=== PATIENT | female | born 2005 | race Caucasian/White ===

== ENCOUNTER 2025-03-15 19:51 | Emergency (ER) | payer BC, SELFPAY ==
[2025-03-15 20:25] VITALS: BP 155/81; PULSE 80; RESP 20; TEMP 36.3; O2SAT 100; BMI 33.1
--- NOTE | 2025-03-16 00:36 | ED.GENADULT ---
HPI - General Adult General Chief complaint: Eye Problems Stated complaint: foreign object in left eye Time Seen by Provider: 03/16/25 00:13 Source: patient, RN notes reviewed and old records reviewed Mode of arrival: ambulatory Limitations: no limitations History of Present Illness ED Provider: Purvi PACK narrative: 19-year-old female presents for evaluation of a foreign body in her left eye. She reports that she would not have any. She works with metal and concrete and reports that she was not wearing eye protection yesterday or today over her eyes. She does not remember actually getting anything in her eye but felt discomfort when she was pumping gas a few hours prior to arrival. She looks in the mirror and saw a small black speck on the nasal side of her left eye. Abdominal she denies any visual changes. Her last tetanus was 8 years ago She reports that she has an eye doctor in the outpatient setting that she sees for prescription glasses but never wears contacts Related Data Previous Rx's ?Medication ?Instructions ?Recorded tobramycin 0.3 % eye drops 2 drp ophthalmic-Left Q4H 5 days 03/16/25 #5 mL Allergies Allergy/AdvReac Type Severity Reaction Status Date / Time No Known Allergies Allergy Verified 03/15/25 20:27 Review of Systems Eyes: Eyes: Denies blurry vision, Reports irritation, Denies loss of vision, Denies other visual disturbances, Reports requires corrective lenses, Denies seeing flashes, Denies photophobia, Denies spots in vision and Denies tunnel vision ENT: Denies vertigo and Denies dizziness Cardiovascular: Cardiovascular: Denies chest pain Neurologic: Denies vertigo, Denies dizziness and Denies loss of vision PMFSH Social History Social History Advance Directives: No Advance Directives Information Provided: Yes Physical Exam ED Vital Signs: Vital Signs - 24 hr 03/15/25 20:25 Temperature 97.4 F Pulse Rate 80 Respiratory Rate 20 Blood Pressure 155/81 H Pulse Oximetry 100 Oxygen Delivery Method Room Air BMI result Body Mass Index 33.1 Const General: healthy appearing, comfortable, no acute distress, alert and awake Nutritional Appearance: well nourished Orientation/consciousness: patient oriented x3 HENMT Head: Yes normocephalic and Yes atraumatic Eyes Other: There is a pinpoint foreign body to the left eye in the nasal side of the iris. This was easily removed with a cotton swab. A tiny rust ring appeared to remain Visual Villarreal: normal visual villarreal by confrontation Alignment and Position: alignment normal Periorbital: periorbital findings normal Eyelids: Yes eyelids normal Sclerae: sclerae normal Corneas: corneas normal Pupils: Equal, round and reactive pupils present EOM: EOMs intact bilaterally Direct Ophthalmoscopy: No photophobia Neck Neck: Yes full ROM Resp Effort & Inspection: normal respiratory effort, able to speak in complete sentences and not labored Skin General skin exam: elasticity normal Neuro General: patient oriented x3 Cranial nerves: Yes Equal, round and reactive pupils present and Yes Bilaterally intact EOM present Cognition (Neuro): normal cognition Extrem Other: Moving all extremities well without any obvious deformities Medical Decision Making Medical Decision Making MDM Narrative: 19-year-old female presents for evaluation of a foreign body in the left eye. She reports mild discomfort, no visual changes. She had Toradol, a tiny foreign body that appeared to be metallic in nature. She does work with metal. For this reason we will update her tetanus. I was easily able to remove the metallic foreign body with a cotton swab on 1 try. A tiny rust ring appeared to remain. We do not have a bur. 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 I feel that safety discharge the patient with antibiotics outpatient ophthalmology follow up and a referral to our in-house Ophthalmology in case she is unable to see her outpatient provider. I discussed the importance of using I wear protection in the future Differential Diagnosis Differential Diagnoses: The differential diagnosis associated with the presentation includes Conjunctival foreign body Corneal abrasion Conjunctivitis Iritis Discharge Plan Discharge Clinical Impression: Acute foreign body of left conjunctiva Patient Disposition: Home, Self-Care Instructions: Eye Foreign Body (ED) Additional Instructions: You had a metallic foreign body in the left eye. This was easily removed with a cotton swab. However there is a tiny remnants known as a rust ring This is usually removed by a tool called a bur In his important to follow up with Ophthalmology. You may call your eye doctor vikash and if they can not see you tomorrow afternoon, you may call Dr. Palomares at the number provided In the meantime your tetanus was updated today in his good for 5 years. Take the antibiotic drops as prescribed to prevent conjunctivitis or pinkeye In his very important to wear eye protection when you were working with metal fragments Prescriptions: New tobramycin 0.3 % drops 2 drp ophthalmic-Left Q4H 5 Days Qty: 5 0RF Referrals: Joey Palomares [Physician, Ophthalmology] Referral Note: left eye rust ring Print Language: Upper Sorbian
--- OUTSIDE RECORDS SUMMARY | 2025-03-16 00:45 | XMS_ITS | Encounter Summary ---
Author Organization [facility] Address [address] [place] [id number] Phone Care Team Providers Care Monotype Operator Name Role Phone Rachel Mcknight MD Primary Care Provider [phone] Encounter Details Date Type Department Care Team (Late st Contact Info) Description 03/21/2013 Documentation [facility] [place] [address] [place] [address] Family Medicine, Physician [address] [place], [place] [phone] Social History Tobacco Use Types Packs/Day Years Used Date Smoking Tobacco: Never Assessed Comments Unknown Sex and Gender Information Value Date Recorded Sex Assigned at Female 11/16/2019 5:24 PM EDT Legal Sex Female 4:52 PM EDT Gender Identity Female 11/16/2019 5:24 PM EDT Sexual Orientation Straight 11/16/2019 5: 24 PM EDT documented as of this encounter Plan of Treatment Not on file documented as of this encounter Visit Diagnoses Not on filedocumented in this encounter Care Teams Monotype Operator Relationship Specialty Start Date End Date Rachel Mcknight MD [address] [place] [address] PCP - General Pediatrics 10/18/17 09/19/23 documented as of this encounter
--- OUTSIDE RECORDS SUMMARY | 2025-03-16 00:45 | XMS_ITS | Encounter Summary ---
Author Organization [facility] Address [address] [place] [phone] Phone Care Team Providers Care Supervisor Firearms Name Role Phone Rachel Mcknight MD Primary Care Provider [phone] Encounter Details Date Type Department Care Team (Late st Contact Info) Description 11/21/2010 Documentation [facility] [place] Family Medicine [address] [place] [address] Family Medicine, Physician [address] [place], [place] [phone] Social History Tobacco Use Types Packs/Day Years [...] on filedocumented in this encounter Care Teams Supervisor Firearms Relationship Specialty Start Date End Date Rachel Mcknight MD [address] [place] [address] PCP - General Pediatrics 10/18/17 09/19/23 documented as of this encounter
--- OUTSIDE RECORDS SUMMARY | 2025-03-16 00:45 | XMS_ITS | Encounter Summary ---
Author Organization [facility] Address [address] [place] [address] Phone Care Team Providers Care Tilting Saw Operator Name Role Phone Rachel Mcknight MD Primary Care Provider [phone] Encounter Details Date Type Department Care Team (Late st Contact Info) Description 11/21/2010 [place] [facility] [place] [address] [place] [address] Family Medicine, Physician [address] [place], [place] [phone] Social History Tobacco Use Types Packs/Day Years [...] on filedocumented in this encounter Care Teams Tilting Saw Operator Relationship Specialty Start Date End Date Rachel Mcknight MD [address] [place] [address] PCP - General Pediatrics 10/18/17 09/19/23 documented as of this encounter
--- OUTSIDE RECORDS SUMMARY | 2025-03-16 00:45 | XMS_ITS | Encounter Summary ---
Author Organization [facility] Address [address] [place] [address] Phone Care Team Providers Care Signal Manager Name Role Phone Rachel Mcknight MD Primary Care Provider [phone] Encounter Details Date Type Department Care Team (Late st Contact Info) Description 11/21/2010 Documentation [facility] [place] Family Medicine [address] [place] [address] Family Medicine, Physician [address] [place], [place] [phone] Social History Tobacco Use Types Packs/Day Years [...] on filedocumented in this encounter Care Teams Signal Manager Relationship Specialty Start Date End Date Rachel Mcknight MD [address] [place] [address] PCP - General Pediatrics 10/18/17 09/19/23 documented as of this encounter
--- OUTSIDE RECORDS SUMMARY | 2025-03-16 00:46 | XMS_ITS | Encounter Summary ---
Author Organization [facility] Address [address] [place] [address] Phone Care Team Providers Care Film Laboratory Technician Name Role Phone Rachel Mcknight MD Primary Care Provider [phone] Encounter Details Date Type Department Care Team (Late st Contact Info) Description 09/16/2016 Documentation [facility] [place] Family Medicine [address] [place] [address] Family Medicine, Physician [address] [place], [place] [phone] Social History Tobacco Use Types Packs/Day Years [...] on filedocumented in this encounter Care Teams Film Laboratory Technician Relationship Specialty Start Date End Date Rachel Mcknight MD [address] [place] [address] PCP - General Pediatrics 10/18/17 09/19/23 documented as of this encounter
--- OUTSIDE RECORDS SUMMARY | 2025-03-16 00:46 | XMS_ITS | Encounter Summary ---
Author Organization [facility] Address [address] [place] [address] Phone Care Team Providers Care Harness Repairer Name Role Phone Rachel Mcknight MD Primary Care Provider [phone] Encounter Details Date Type Department Care Team (Late st Contact Info) Description 10/10/2013 Documentation [facility] [place] Family Medicine [address] [place] [address] Family Medicine, Physician [address] [place], [place] [phone] Social History Tobacco Use Types Packs/Day Years [...] on filedocumented in this encounter Care Teams Harness Repairer Relationship Specialty Start Date End Date Rachel Mcknight MD [address] [place] [address] PCP - General Pediatrics 10/18/17 09/19/23 documented as of this encounter
--- OUTSIDE RECORDS SUMMARY | 2025-03-16 00:46 | XMS_ITS | Encounter Summary ---
Author Organization [facility] Address [address] [place] [address] Phone Care Team Providers Care Route Delivery Supervisor Name Role Phone Rachel Mcknight MD Primary Care Provider [phone] Encounter Details Date Type Department Care Team (Late st Contact Info) Description 09/16/2016 Documentation [facility] [place] Family Medicine [address] [place] [address] Family Medicine, Physician [address] [place], [place] [phone] Social History Tobacco Use Types Packs/Day Years [...] on filedocumented in this encounter Care Teams Route Delivery Supervisor Relationship Specialty Start Date End Date Rachel Mcknight MD [address] [place] [address] PCP - General Pediatrics 10/18/17 09/19/23 documented as of this encounter
--- OUTSIDE RECORDS SUMMARY | 2025-03-16 00:46 | XMS_ITS | Clinical Summary ---
Author Organization [facility] Address [address] [place] [address] Phone Care Team Providers Care Primer Inserting Machine Adjuster Name Role Phone Unavailable Primary Care Provider Unavailabl e Allergies No known active allergies Medications tretinoin 0.025 % creamIndication s:Acne vulgaris Apply topically nightly. Leave on overnight. 45 g 3 0 Active norgestrel-ethi nyl estradiol (Cryselle-28) 0.3-30 MG-MCG per tabletIndicatio ns:Acne vulgaris Take 1 tablet by mouth daily. 84 tablet 3 3 Active Active Problems Problem Noted Date Diagnosed Date COVID-19 virus infection 04/17/2021 Overview (04/17/2021): Symptoms started 04/15/21, pos home test 04/16/21. Mild symptoms. Assessment & Plan (04/17/2021 11:19 AM EST): Mild symptoms at this time, and she is fully vaccinated but not boosted. Does meet criteria for monoclonal ab treatment by BMI, but they are not interested in being referred for this. I reviewed no physical exertion during 10 day isolation and gradual return to exercise (letter provided for this). They are aware to call for chest pain, palpitations, SOB with activity (and to stop activity), also if they have significant symptoms (fever, myalgias) > 4 days. Isolation period reviewed, can come out of isolation after 5 days if asymptomatic at that time (aware to continue wearing masks around others at all times until at least 10 days from her start of symptoms). I also recommended upgrading masks to KN95, N95, or surgical mask. Quarantine for family members reviewed, including timing of testing and watching for symptoms and re-testing if symptomatic at any point, for 14 days. Borderline hyperlipidemia 11/29/2020 Overview (11/29/2020): 11/26/20: NFLs: TC 212, HDL 60, non-HDL 152 --> decrease fast food! Check labs next year (2021). Assessment & Plan (01/29/2022 11:24 AM EDT): Fasting lipids ordered. Decreased vision 11/16/2019 Overview (11/16/2019): Has glasses Assessment & Plan (11/26/2020 3:46 PM EDT): Failed vision on right today- advised to see eye doctor and has appt in December. Assessment & Plan (11/16/2019 5:17 PM EDT): Needs to see her eye doctor, hasn't been in about a year. BMI (body mass index), pedia tric, 85% to less than 95% for age 0811/16/2019 Assessment & Plan (11/26/2020 4:01 PM EDT): NFLs and hemoglobin a1c ordered today. We discussed decreasing fast food and especially soda as well as increasing regular physical activity. Assessment & Plan (11/16/2019 5:21 PM EDT): Gained weight during pandemic, two weeks ago started running every other day with her sister. Eating fruits and veggies, drinking water and gatorade (had cut out soda). Advised to cut out the gatorade. Follow. Gastroesophageal reflux 09/28/2019 Assessment & Plan (11/26/2020 3:46 PM EDT): Not happening often now. Assessment & Plan (11/16/2019 5:18 PM EDT): No longer eating at night and eating better in general and it is now improved! Assessment & Plan (09/28/2019 4:17 PM EDT): Discussed lifestyle modifications (elevation of bed, diet, not eating after dinner, can try Maalox or Tums on occasion if they want). Will f/u if not improving with these. Acne vulgaris 10/20/2018 Overview (09/28/2019): Mild on forehead. Started benzoyl peroxide gel daily and tretinoin 0.025% cream qhs 10/14. OCPs started 08/15 Assessment & Plan (01/29/2022 11:25 AM EDT): Discussed increasing her estrogen (currently on 20mcg, recommend 30mcg), patient okay with this, so Cryselle ordered. If she has significant SEs, can go back to previous dose. Rx done. No need for OCP re-check unless there are concerns. Assessment & Plan (11/26/2020 3:47 PM EDT): Happy with OCPs for acne. Assessment & Plan (11/16/2019 5:19 PM EDT): Happy with the OCPs. Also using topical treatments which is going well. Assessment & Plan (10/20/2018 10:55 AM EDT): Start benzoyl peroxide gel daily and tretinoin 0.025% cream qhs. F/u 3 mos. Tension type headache 10/20/2018 Overview (10/20/2018): Thinks they are glasses or heat-related. Relieved with rest. 2-3x/week, then not for several weeks. Assessment & Plan (01/29/2022 11:24 AM EDT): Headaches still painful but not very frequent. Assessment & Plan (11/26/2020 4:01 PM EDT): This has been improved, getting HAs ~2x/mo. She has a PIERRE today from wearing a mask all day (first day of school), so ibuprofen given per their request. Assessment & Plan (11/16/2019 5:17 PM EDT): This is better. Assessment & Plan (10/20/2018 10:42 AM EDT): She has been dealing with these well and no red flags. Scoliosis concern 10/18/2017 Overview (11/26/2020): Up to 4 degrees on scoliometer 10/13, no change 11/15 and relatively normal exam 11/16. Assessment & Plan (01/29/2022 11:26 AM EDT): Mild asymmetry on forward bend test (not measured on scoliometer as she has not had linear growth in many years. Discussed with patient- x-ray should be done if she ever has back pain. Assessment & Plan (11/26/2020 4:02 PM EDT): No concern today, will continue to follow clinically. Assessment & Plan (11/16/2019 5:39 PM EDT): No change and patient mostly done growing, so nothing to do. Assessment & Plan (10/18/2017 9:37 AM EDT): F/u 6 mos Immunizations Immunization Administration Dates Next Due COVID-19 Pfizer, bivalent, 12+ years 01/29/2022 DTaP 11/07/2009 DTaP 5 02/22/2006, 5,2004,10/15 HPV Vaccine 9 Valent 10/18/2017,09/16/2016 Hep A, ped/adol 10/18/2017,09/16/2016 Hep B, ped/adol 05/25/2005,02/16/2005,2004 Hib (HbOC) 02/16/2005,2004,2004 Hib (PRP-T) 11/23/2005 IPV 11/07/2009, 6,2004,10/15 Influenza Split 11/20/2010 Influenza, injectable, quadr ivalent, preservative free 01/29/2022,11/26/2020,04/11/2020 MMR 11/07/2009,08/17/2005 Meningococcal Conj (Menactra) MCV4P 11/26/2020,0 09/16/2016 Pneumococcal Conjugate 11/23/2005,2004,2004,10/15 Tdap 09/16/2016 Varicella 11/07/2009,08/17/2005 Family History Medical History Relation Name Comments Hyperlipidemia Father Kade Bañuelos Anxiety disorder Mother Priya Bañuelos never treat ed Hyperlipidemia Mother Priya Bañuelos Hypertension Mother Priya Bañuelos Thyroid disease Mother Priya Bañuelos No Known Problems Sister 1 Colleen Bañuelos No Known Problems Sister 2 Bessie Bañuelos No Known Problems Sister 3 Nadege Relation Name Status Comments Father Kade Bañuelos Alive Father: Seizure disorder Mother Priya Bañuelos Alive Mother: Obesity , Hyperlipidemia Other No family histo ry of Migraines, No family history of ADD/ADHD, No family history of Cancer, No family history of Strabismus, No family history of Asthma, No family history of Deafness, No family history of Diabetes mellitus, Family history of Hyperlipidemia, Family history of Obesity, No family history of Developmental dislocation of hip, Family history of Seizure disorder Sister 1 Colleen Bañuelos Alive Sister: Alive and well, Alive and well, Alive and well Sister 2 Bessie Bañuelos Alive Sister: Alive a nd well, Alive and well, Alive and well Sister 3 Nadege Alive Sister: Alive a nd well, Alive and well, Alive and well Social History Tobacco Use Types Packs/Day Years Used Date Smoking Tobacco: Never Smokeless Tobacco: Never Tobacco Cessation:Counseling Given: Yes Alcohol Use Standard Drinks/Week Comments No 0 (1 standard drink = 0.6 oz pur e alcohol) Hunger/Food Answer Date Recorded In the last 12 months, did y ou or your family ever eat less than you felt you should because there wasn't enough money for food? No 11/26/2020 Stable Housing Answer Date Recorded Are you worried that in the next 2 months you may not have stable housing? No 11/26/2020 Transportation Concerns Answer Date Rec orded In the last 12 months, have you or your family ever had to go without healthcare because you didn't have a way to get there? No 11/26/2020 Hazards in Home Answer Date Recorded Think about the place you li ve. Do you have problems with any of the following? Pests (mice or roaches), mold, no/not working smoke detectors, water leaks, no window guards. No 2020 Financing Utilities Answer Date Recorde d In the last 12 months, has t he electric, gas, oil, or water company threatened to shut off your services in your home? No 11/26/2020 Safety at Home Answer Date Recorded Are you or your family worried about feeling saf e in your home? No 11/26/2020 Outside Support Answer Date Recorded Do you feel that you need mo re support from other people or programs to help you care for yourself or your family? No 11/26/2020 Understanding Health Concerns Answer Da te Recorded Do you need help understandi ng your or your child's healthcare needs (diagnosis, medications, plan, etc.)? No 11/26/2020 Financing Health Concerns Answer Date R ecorded In the last 12 months, was t here a time when your child needed to see a doctor or get medications or supplies but could not because of cost? No 11/26/2020 Missing School or Work Answer Date Xiang rded Did you or your child miss s chool or work because of a health problem that could have been avoided? No 11/26/2020 Comments No Sex and Gender Information Value Date Recorded Sex Assigned at Female 11/16/2019 5:24 PM EDT Legal Sex Female 4:52 PM EDT Gender Identity Female 11/16/2019 5:24 PM EDT Sexual Orientation Straight 11/16/2019 5: 24 PM EDT Last Filed Vital Signs Vital Sign Reading Time Taken Comments Blood Pressure 110/80 01/29/2022 10:21 AM EDT Pulse 78 01/29/2022 10:21 AM EDT Temperature 36.4 C (97.5 F) 01/29/2022 10:21 AM EDT Respiratory Rate - - Oxygen Saturation - - Inhaled Oxygen Concentration - - Weight 69.9 kg (154 lb 3.2 oz) 01/29/2022 10:21 AM EDT Height 162.6 cm (5' 4 ) 01/29/2022 10:21 AM EDT Body Mass Index 26.47 01/29/2022 10:21 AM EDT Plan of Treatment Health Maintenance Due Date Last Done Comments Men B Vaccine (1 of 2 - Standard) 2020 Influenza Vaccines (#1) 2024 01/30/20 22, 11/26/2020, 04/11/2020, Additional history exists COVID-19 Vaccine (5 - 2024-2 6 season) 2024 01/29/2022, 05/07/2021, 09/04/2020, Additional history exists DTaP,Tdap,and Td Vaccines (7 - Td or Tdap) 09/16/2026 09/16/2016, 11/07/2009, 02/22/2006, Additional history exists Hepatitis B Vaccines Completed 05/25/2005, 02/16/2005, 2004 HIB Vaccines Completed 11/23/2005, 01/28, 2004, Additional history exists Pneumococcal Vaccine Completed 11/23/2005, 02/16/2005, 2004, Additional history exists IPV Vaccines Completed 11/07/2009, 04/30, 2004, Additional history exists MMR Vaccines Completed 11/07/2009, 08/17/2005 Varicella Vaccines Completed 11/07/2009, 08/17/2005 HPV Vaccines Completed 10/18/2017, 09/16/2016 Hepatitis A Vaccines Completed 10/18/2017, 09/17/19 17 Meningococcal Vaccine Completed 11/26/2020, 017 Procedures * Due to [place] [employer] law, this organization might not be sharing sensitive test results. Procedure Name Priority Date/Time Associated Diagnosis Comments CHLAMYDIA AND GONORRHEA, AMPLIFIED Routine 01/29/2022 10:33 AM EDT Encounter for screening examination for sexually transmitted disease from Last 3 Months or Most Recently Relevant to Health Maintenance Results * Due to [place] [employer] law, this organization might not be sharing sensitive test results. * Chlamydia and Gonorrhoea, Amplified (01/29/2022 10:33 AM EDT) Chlamydia Trachomatis, DNA Probe NEGATIVE (NEG) [facility] Comment: No Chlamydia Trachomatis RNA detected in this patient's sample (REFERENCE RANGE/NORMAL VALUE: NOT DETECTED) Note: This test uses marketing intelligence manager- mediated amplification method to detect rRNA from C. Trachomatis URINE GC AMP PROBE NEGATIVE (NEG) [facility] Comment: No Neisseria Gonorrhoeae RNA detected in this patient's sample (REFERENCE RANGE/NORMAL VALUE: NOT DETECTED) NOTE: This test uses marketing intelligence manager-mediated amplification method to detect rRNA from N.Gonorrhoeae. A negative result does not preclude infection. In the case of a negative urine result, testing of an endocervical(female) or urethral (male) specimen is recommended if there is high clinical suspicion of infection. Due to very high sensitivity of Nucleic Acid Amplification Test, false positive results may occur. Therefore, specimen handling is extremely important. In patients in whom the disease is unlikely, additional sample for testing should be considered after an initial positive result. The performance characteristics of this test have not been evaluated in children. The Aptima Combo2 assay is not intended for the evaluation of suspected sexual abuse or for other medico-legal indications. The ordering provider should assess if the patient had consensual sex without risk of sexual abuse. Consult the [facility] if needed. Contact phone number . Therapeutic failure or success cannot be determined with the Aptima Combo2 assay since nucleic acid may persist following appropriate antimicrobial therapy. The Centers for Disease Control and Prevention (CDC) recommends confirmatory retesting using culture or a different nucleic acid amplification test when positive results occur, if indicated. Testing performed or reported by [facility], a Service of [facility], [facility] [place] [address] Edinson Contreras MD, Welding Equipment Repairer [facility]# [id number] Urine (Urine) 01/29/2022 10: 33 AM EDT 01/29/2022 7:12 PM EDT us Rachel Mcknight MD LAB MICROBIOLOGY - GENERAL OR DERABLES Final Result [facility] from Last 3 Months or Most Recently Relevant to Health Maintenance
--- OUTSIDE RECORDS SUMMARY | 2025-03-16 00:46 | XMS_ITS | Encounter Summary ---
Author Organization [facility] Address [address] [place] [address] Phone Care Team Providers Care Associate Web Developer Name Role Phone Rachel Mcknight MD Primary Care Provider [phone] Encounter Details Date Type Department Care Team (Late st Contact Info) Description 08/09/2012 Documentation [facility] [place] [facility] [address] [place] [address] Family Medicine, Physician [address] [place], [place] [id number] Social History Tobacco Use Types Packs/Day Years [...] on filedocumented in this encounter Care Teams Associate Web Developer Relationship Specialty Start Date End Date Rachel Mcknight MD [address] [place] [address] PCP - General Pediatrics 10/18/17 09/19/23 documented as of this encounter
--- OUTSIDE RECORDS SUMMARY | 2025-03-16 00:46 | XMS_ITS | Encounter Summary ---
Author Organization [facility] Address [address] [place] [phone] Phone Care Team Providers Care Smog Technician Name Role Phone Rachel Mcknight MD Primary Care Provider [phone] Reason for Visit * Reason Onset Date Comments Med Refill 01/11/2020 Encounter Details Date Type Department Care Team ([facility] st Contact Info) Description 01/11/2020 Refill [facility] [place] [address] [place] [address] Rachel Mcknight MD [address] [place] [address] Encounter for counseling regarding contraception Social History Tobacco Use Types Packs/Day Years Used Date Smoking Tobacco: Never Smokeless Tobacco: Never Alcohol Use Standard Drinks/Week Comments No 0 (1 standard drink = 0.6 oz pur e alcohol) Hunger/Food Answer Date Recorded In the last 12 months, did y ou or your family ever eat less than you felt you should because there wasn't enough money for food? No 11/16/2019 Stable Housing Answer Date Recorded Are you worried that in the next 2 months you may not have stable housing? No 11/16/2019 Transportation Concerns Answer Date Rec orded In the last 12 months, have you or your family ever had to go without healthcare because you didn't have a way to get there? No 11/16/2019 Hazards in Home Answer Date Recorded Think about the place you li ve. Do you have problems with any of the following? Pests (mice or roaches), mold, no/not working smoke detectors, water leaks, no window guards. No 2019 Financing Utilities Answer Date Recorde d In the last 12 months, has t he electric, gas, oil, or water company threatened to shut off your services in your home? No 11/16/2019 Safety at Home Answer Date Recorded Are you or your family worried about feeling saf e in your home? No 11/16/2019 Outside Support Answer Date Recorded Do you feel that you need mo re support from other people or programs to help you care for yourself or your family? No 11/16/2019 Understanding Health Concerns Answer Da te Recorded Do you need help understandi ng your or your child's healthcare needs (diagnosis, medications, plan, etc.)? No 11/16/2019 Financing Health Concerns Answer Date R ecorded In the last 12 months, was t here a time when your child needed to see a doctor or get medications or supplies but could not because of cost? No 11/16/2019 Missing School or Work Answer Date Xiang rded Did you or your child miss s chool or work because of a health problem that could have been avoided? No 11/16/2019 Comments No Sex and Gender Information Value Date Recorded Sex Assigned at Female 11/16/2019 5:24 PM EDT Legal Sex Female 4:52 PM EDT Gender Identity Female 11/16/2019 5:24 PM EDT Sexual Orientation Straight 11/16/2019 5: 24 PM EDT documented as of this encounter Plan of Treatment Not on file documented as of this encounter Visit Diagnoses Diagnosis Encounter for counseling regarding contraception documented in this encounter Care Teams Smog Technician Relationship Specialty Start Date End Date Rachel Mcknight MD [address] [place] [id number] PCP - General Pediatrics 10/18/17 09/19/23 documented as of this encounter
--- OUTSIDE RECORDS SUMMARY | 2025-03-16 00:46 | XMS_ITS | Encounter Summary ---
Author Organization [facility] Address [address] [place] [address] Phone Care Team Providers Care Needle Grader Name Role Phone Rachel Mcknight MD Primary Care Provider [phone] Encounter Details Date Type Department Care Team (Late st Contact Info) Description 12/07/2013 Documentation [facility] [place] [address] [place] [address] Family Medicine, Physician [address] [place], [place] [phone] Social History Tobacco Use Types Packs/Day Years [...] on filedocumented in this encounter Care Teams Needle Grader Relationship Specialty Start Date End Date Rachel Mcknight MD [address] [place] [address] PCP - General Pediatrics 10/18/17 09/19/23 documented as of this encounter
--- OUTSIDE RECORDS SUMMARY | 2025-03-16 00:46 | XMS_ITS | Encounter Summary ---
Author Organization [facility] Address [address] [place] [address] Phone Care Team Providers Care Welt Butter Hand Name Role Phone Rachel Mcknight MD Primary Care Provider [phone] Encounter Details Date Type Department Care Team (Late st Contact Info) Description 08/09/2012 Documentation [facility] [place] [facility] [address] [place] [address] Family Medicine, Physician [address] [place], [place] [phone] Social History Tobacco Use Types Packs/Day Years [...] on filedocumented in this encounter Care Teams Welt Butter Hand Relationship Specialty Start Date End Date Rachel Mcknight MD [address] [place] [address] PCP - General Pediatrics 10/18/17 09/19/23 documented as of this encounter
--- OUTSIDE RECORDS SUMMARY | 2025-03-16 00:46 | XMS_ITS | Encounter Summary ---
Author Organization [facility] Address [address] [place] [address] Phone Care Team Providers Care Strategic Alliances Manager Name Role Phone Rachel Mcknight MD Primary Care Provider [phone] Encounter Details Date Type Department Care Team ([facility] st Contact Info) Description 11/12/2016 Conversion Encounter [facility] [place] [address] [place] [address] Social History Tobacco Use Types Packs/Day Years [...] on filedocumented in this encounter Care Teams Strategic Alliances Manager Relationship Specialty Start Date End Date Rachel Mcknight MD [address] [place] [address] PCP - General Pediatrics 10/18/17 09/19/23 documented as of this encounter
[2025-03-16] MEDS: Tetracaine HCl/PF 0.5% Oph Sol 4 ML DROPS 1 DROP EYE-LEFT (01:03)
[2025-03-16] MEDS: Tobramycin Sulfate 0.3% Sol Op 5 ML BTL 2 DROP EYE-LEFT (01:04)
[2025-03-16 01:08] VITALS: BP 113/81; PULSE 74; RESP 16; TEMP 36.6; O2SAT 99
[2025-03-16] MEDS: Diphth,Pertus(ACell),Tet Adult 0.5 ML SYRINGE IM (01:23)
[2025-03-16 01:27] VITALS: BP 113/81; PULSE 74; RESP 16; TEMP 36.6; O2SAT 99
== END 2025-03-16 01:30 | disposition home or self-care (01) ==
PROVIDERS: Emergency Provider Emergency Medicine Emergency Medical Services
DX: T15.12XA Foreign body in conjunctival sac, left eye, initial encounter (principal); W44.E9XA Other non-magnetic metal objects entering into or through a natural orifice, initial encounter; Y93.H3 Activity, building and construction; Y92.61 Building [any] under construction as the place of occurrence of the external cause; Y99.0 Civilian activity done for income or pay; Z23 Encounter for immunization
CPT/HCPCS: 90471; 90715; 99282; 99284